=== PATIENT | female | born 1970 | race Caucasian/White ===

== ENCOUNTER 2018-02-06 16:38 | Emergency (ER) | payer MEDICAID, OTHER ==
[2018-02-06 17:03] LABS: #Basophils 0.1 thou/uL (0.0-0.2); #Eosinphils 0.4 thou/uL (0.0-0.7); #Lymphocytes 2.7 thou/uL (1.20-3.40); #Monocytes 0.7 thou/uL (0.11-0.59); #Neutrophils 7.1 thou/uL (1.40-6.50); %Basophils 0.6 % (0.0-1.0); %Eosinophils 3.3 % (0.0-10.0); %Lymphocytes 24.5 % (21.0-51.0); %Monocytes 6.2 % (0.0-10.0); %Neutrophils 65.5 % (42.0-75.0); Hemoglobin 13.1 g/dL (12.0-16.0); Mean Corpuscular HGB CONC 32.8 g/dL (32.0-36.0); Mean Corpuscular Hemoglobin 29.8 pg (27.0-31.0); Mean Corpuscular Volume 90.7 fl (81.0-99.0); Platelet Count 400 thou/uL (130-400); RBC Distribution Width 13.7 % (11.5-14.5); White Blood Cell (WBC) Count 10.9 thou/uL (4.8-10.8)
[2018-02-06 17:23] LABS: CKMB 1.1 ng/mL (0-6.6); Troponin I Less than 0.010 ng/mL (< 0.028)
[2018-02-06 17:25] LABS: ALT (SGPT) 14 U/L (8-55); AST (SGOT) 19 U/L (5-34); Albumin 4.3 g/dL (3.5-5.0); Alkaline Phosphatase 31 U/L (40-150); Anion Gap 12 mmol/L (10-20); BUN (Urea Nitrogen) 8 mg/dL (7.0-18.7); Bilirubin, Total 0.2 mg/dL (0.2-1.2); CK (CPK) 127 U/L (29-168); Calc. Creatinine Clearance 0 mL/min (70-130); Calcium 9.6 mg/dL (7.8-10.44); Carbon Dioxide 24 mmol/L (22-29); Chloride 106 mmol/L (98-107); Estimated GFR-MDRD 80; Globulin 2.6 g/dL (2.4-3.5); Glucose 99 mg/dL (70-105); Protein, Total 6.9 g/dL (6.0-8.3); Sodium 138 mmol/L (136-145)
--- NOTE | 2018-02-06 18:58 | RAD ---
RADIOGRAPH CHEST 1 VIEW: 02/06/18 HISTORY: 47-year-old female with chest pain. FINDINGS: There are no air space densities, pulmonary edema, pneumothorax, or cardiomegaly. The lateral costop hrenic angles are sharp. IMPRESSION: No acute cardiopulmonary findings. walt [] POS: [facility]
[2018-02-06] MEDS ORDERED: Ondansetron ODT 4 MG TAB ONE (19:46)
[2018-02-06] MEDS ORDERED: Acetaminophen 500 MG TAB ONE ×2 (19:51→19:55)
[2018-02-06] MEDS ORDERED: Ondansetron HCl/PF 4 MG/2 ML Vial ONE ×2 (19:56→21:50)
[2018-02-06 19:59] LABS: Bilirubin Negative (Negative); Blood, Urine Negative (Negative); Clarity CLEAR (Clear); Glucose, Urine (Dipstick) Negative (Negative); Leukocyte Negative (Negative); Nitrite Negative (Negative); Protein, Urine (Dipstick) Negative (Neg-Trace); Specific Gravity, Urine 1.012 (1.002-1.036); Urobilinogen 0.2 mg/dL (0.2-1.0)
[2018-02-06 20:56] LABS: Troponin I Less than 0.010 ng/mL (< 0.028)
[2018-02-06] MEDS ORDERED: Ketorolac Tromethamine 30 MG/ML VIAL ONE (21:50)
== END 2018-02-06 22:40 | disposition home or self-care (01) ==
LOC: ERS 16:38
DX: R07.89 Other chest pain (principal); M79.1 Myalgia; R11.2 Nausea with vomiting, unspecified; F41.9 Anxiety disorder, unspecified; F31.9 Bipolar disorder, unspecified; F17.210 Nicotine dependence, cigarettes, uncomplicated
CPT/HCPCS: 36415; 71045; 80053; 81003; 82550; 82553; 83880; 84484; 85025; 85379; 93005; 96361; 96374; 96375; 96376; J1885; J2405; Q0162

== ENCOUNTER 2018-06-28 19:06 | Emergency (ER) | payer OTHER, SELFPAY ==
[2018-06-28] MEDS ORDERED: HYDROcodone/Acetaminophen 5/325 mg Tablet ONE (20:07)
--- NOTE | 2018-06-28 20:37 | RAD ---
LEFT KNEE: 06/28/18 Four views. HISTORY: fall with injury and pain. No evidence of fracture. Joint spaces are preserved. Minimal degenerative change. No joint effusion. IMPRESSION: No acute abnormality identified. POS: [facility]
== END 2018-06-28 20:22 | disposition home or self-care (01) ==
LOC: SCSER 19:06
DX: S80.02XA Contusion of left knee, initial encounter (principal); F41.9 Anxiety disorder, unspecified; F17.210 Nicotine dependence, cigarettes, uncomplicated; Z79.899 Other long term (current) drug therapy; W17.89XA Other fall from one level to another, initial encounter

== ENCOUNTER 2018-08-01 08:52 | Outpatient (CLI) | payer OTHER ==
[~2018-08-01 08:52] MED LIST: ISOVUE-370 76%-LOCM 1 ML ONE
== END 2018-08-01 08:53 | disposition home or self-care (01) ==
LOC: BICCT 08:52
PROVIDERS: ATTEND Family Medicine
DX: R91.8 Other nonspecific abnormal finding of lung field (principal)
CPT/HCPCS: 71260

== ENCOUNTER 2018-11-22 18:37 | Emergency (ER) | payer OTHER, SELFPAY ==
--- NOTE | 2018-11-22 19:36 | RAD ---
THREE VIEW LEFT SHOULDER 11/22/18 INDICATION: Fall with left shoulder pain and injury. 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 No fracture or dislocation. IMPRESSION: No acute osseous abnormality of the left shoulder. POS: [facility]
--- NOTE | 2018-11-22 20:00 | CT ---
CERVICAL SPINE CT NONCONTRAST: 11/22/18 CLINICAL INDICATION: Neck injury with pain. FINDINGS: There is mild to moderate multilevel degenerative change throughout the cervical spine. No fracture o r dislocation identified. Craniocervical junction is intact. IMPRESSION: No acute osseous abnormality of the cervical spine. POS: [facility]
[2018-11-22] MEDS ORDERED: HYDROcodone/Acetaminophen 5/325 mg Tablet ONE (21:02)
== END 2018-11-22 21:21 | disposition home or self-care (01) ==
LOC: SCSER 18:37
DX: S43.402A Unspecified sprain of left shoulder joint, initial encounter (principal); S16.1XXA Strain of muscle, fascia and tendon at neck level, initial encounter; F41.9 Anxiety disorder, unspecified; F31.9 Bipolar disorder, unspecified; F17.210 Nicotine dependence, cigarettes, uncomplicated; Z71.6 Tobacco abuse counseling; Z79.899 Other long term (current) drug therapy; W18.09XA Striking against other object with subsequent fall, initial encounter
CPT/HCPCS: 72125; 99406

== ENCOUNTER 2018-12-13 18:02 | Emergency (ER) | payer SELFPAY ==
--- NOTE | 2018-12-13 19:45 | RAD ---
LEFT KNEE FOUR VIEWS: 12/13/18 HISTORY: Fall. Left knee injury. FINDINGS: Mild osteophytosis. Joint spaces are preserved. No acute fracture, dislocation, or fluid distention o f the suprapatellar bursa. IMPRESSION: Mild osteoarthritic changes left knee. POS: [facility]
--- NOTE | 2018-12-13 20:00 | RAD ---
RADIOGRAPH LEFT ELBOW FOUR VIEWS: 12/13/18 HISTORY: 48-year-old female status post acute traumatic injury to the elbow due to fall. FINDINGS: No fracture or dislocation. No distention of the joint capsule. Degenerative bony hypertrophy of the coronoid process of the acromion. IMPRESSION: No fracture. POS: [facility]
== END 2018-12-13 19:06 | disposition home or self-care (01) ==
LOC: ERS 18:02
DX: S50.02XA Contusion of left elbow, initial encounter (principal); S80.02XA Contusion of left knee, initial encounter; F31.9 Bipolar disorder, unspecified; F41.9 Anxiety disorder, unspecified; F17.210 Nicotine dependence, cigarettes, uncomplicated; Z79.899 Other long term (current) drug therapy; W17.89XA Other fall from one level to another, initial encounter

== ENCOUNTER 2019-02-20 15:10 | Emergency (ER) | payer SELFPAY ==
--- NOTE | 2019-02-20 15:48 | RAD ---
RADIOGRAPH CHEST 1 VIEW: 02/20/19 HISTORY: 48-year-old female with dyspnea. FINDINGS: There are no air space densities, pulmonary edema, pneumothorax, or cardiomegaly. The lateral costop hrenic angles are sharp. IMPRESSION: No acute cardiopulmonary findings. jn [] POS: [facility]
[2019-02-20 15:58] LABS: #Eosinphils 0.3 thou/uL (0.0-0.7); #Lymphocytes 2.5 thou/uL (1.20-3.40); #Monocytes 0.7 thou/uL (0.11-0.59); #Neutrophils 8.8 thou/uL (1.40-6.50); %Basophils 0.4 % (0.0-1.0); %Eosinophils 2.4 % (0.0-10.0); %Lymphocytes 20.1 % (21.0-51.0); %Monocytes 5.7 % (0.0-10.0); %Neutrophils 71.4 % (42.0-75.0); Hemoglobin 14.7 g/dL (12.0-16.0); Mean Corpuscular HGB CONC 32.4 g/dL (32.0-36.0); Mean Corpuscular Hemoglobin 31.8 pg (27.0-31.0); Mean Platelet Volume 6.6 fL (7.4-10.4); Platelet Count 427 thou/uL (130-400); RBC Distribution Width 12.6 % (11.5-14.5); Red Blood Cell (RBC) Count 4.62 mill/uL (4.20-5.40); White Blood Cell (WBC) Count 12.3 thou/uL (4.8-10.8)
[2019-02-20 16:23] LABS: ALT (SGPT) 16 U/L (8-55); AST (SGOT) 13 U/L (5-34); Albumin 4.4 g/dL (3.5-5.0); Alkaline Phosphatase 41 U/L (40-150); Anion Gap 13 mmol/L (10-20); BUN (Urea Nitrogen) 7 mg/dL (7.0-18.7); Bilirubin, Total 0.3 mg/dL (0.2-1.2); Calc. Creatinine Clearance 0 mL/min (70-130); Calcium 9.9 mg/dL (7.8-10.44); Carbon Dioxide 26 mmol/L (22-29); Chloride 108 mmol/L (98-107); Estimated GFR-MDRD 78; Globulin 2.8 g/dL (2.4-3.5); Glucose 77 mg/dL (70-105); Protein, Total 7.2 g/dL (6.0-8.3); Sodium 143 mmol/L (136-145)
[2019-02-20] MEDS ORDERED: Ketorolac Tromethamine 30 MG/ML VIAL ONE (16:45)
[2019-02-20 16:46] LABS: Bilirubin Negative (Negative); Blood, Urine Large (Negative); Clarity CLOUDY (Clear); Glucose, Urine (Dipstick) Negative (Negative); Leukocyte Negative (Negative); Nitrite Negative (Negative); Protein, Urine (Dipstick) Trace mg/dL (Neg-Trace); Specific Gravity, Urine 1.027 (1.002-1.036); Urobilinogen 0.2 mg/dL (0.2-1.0)
[2019-02-20 16:50] LABS: Bacteria/HPF None Seen HPF (None Seen); RBC/HPF 21-50 HPF (0-3)
[2019-02-20 16:55] LABS: Pathc Cast-AUWi Flag 3.94 (0-2.49)
[2019-02-20 17:00] LABS: Hyaline Casts/LPF 4-6 HYALINE CAST LPF (0-3 Hyaline); Other Casts/LPF None Seen LPF (0-3 Hyaline)
[2019-02-20] MEDS ORDERED: Morphine 4 MG/ML VIAL ONE ×2 (17:48→20:57)
--- NOTE | 2019-02-20 18:45 | CT ---
FCT of abdomen and pelvis: 02/20/2019 COMPARISON: 04/21/2014 HISTORY: Hematuria and flank pain TECHNIQUE: Axial CT imaging at 5 mm intervals from lung bases through pubic symphysis without contras t. Coronal reformatted imaging obtained. FINDINGS: The lack of contrast media limits assessment of the viscera, bowel, vascular structures, an d for lymphadenopathy. Incompletely imaged nodule noted in right lung base on axial image 1 measuring 8 mm. Nonemergent foll ow-up CT examination of the chest advised. There is no evidence for free intraperitoneal air or fluid. Clips in the right upper quadrant suggest prior cholecystectomy. Gastric suture line noted. Trace stable pericardial fluid present. Liver, spleen, pancreas, adrenal glands, and kidneys demonstrate no acute findings. Punctate nonobstructing stone noted in upper pole of right kidney measuring in the 2 mm range. Limited assessment of the bowel demonstrates no acute findings. The appendix appears grossly unremarkable. Review of the osseous structures demonstrates no acute findings. IMPRESSION: Punctate nonobstructing stone upper pole right kidney. No evidence for obstructive uropat hy noted on either side. Incompletely imaged nodule within the right lung base for which nonemergent follow-up chest CT suggested.
== END 2019-02-20 21:50 | disposition home or self-care (01) ==
LOC: ERS 15:10
DX: B34.9 Viral infection, unspecified (principal); F41.9 Anxiety disorder, unspecified; F31.9 Bipolar disorder, unspecified; F17.210 Nicotine dependence, cigarettes, uncomplicated; Z79.899 Other long term (current) drug therapy
CPT/HCPCS: 36415; 71045; 74176; 80053; 81003; 81015; 84484; 85025; 93005; 96374; 96375; 96376; J1885; J2270

== ENCOUNTER 2019-04-28 16:32 | Emergency (ER) | payer SELFPAY ==
--- NOTE | 2019-04-28 16:52 | RAD ---
XR Chest 1 View Portable History: Chest pain Comparison: Chest radiograph February 20, 2019 Findings: Lungs are clear. No pneumothorax or effusion. Cardiac silhouette and mediastinal contours a re within normal limits. Impression: No acute intrathoracic abnormality.
[2019-04-28 17:04] LABS: #Basophils 0.1 thou/uL (0.0-0.2); #Eosinphils 0.3 thou/uL (0.0-0.7); #Lymphocytes 2.5 thou/uL (1.20-3.40); #Monocytes 0.8 thou/uL (0.11-0.59); #Neutrophils 8.5 thou/uL (1.40-6.50); %Basophils 0.6 % (0.0-1.0); %Eosinophils 2.4 % (0.0-10.0); %Lymphocytes 20.3 % (21.0-51.0); %Monocytes 6.6 % (0.0-10.0); %Neutrophils 70.1 % (42.0-75.0); Hemoglobin 14.1 g/dL (12.0-16.0); Mean Corpuscular HGB CONC 31.9 g/dL (32.0-36.0); Mean Corpuscular Hemoglobin 31.3 pg (27.0-31.0); Mean Corpuscular Volume 98.4 fL (78.0-98.0); Mean Platelet Volume 6.5 fL (7.4-10.4); Platelet Count 394 thou/uL (130-400); RBC Distribution Width 12.2 % (11.5-14.5); Red Blood Cell (RBC) Count 4.51 mill/uL (4.20-5.40); White Blood Cell (WBC) Count 12.1 thou/uL (4.8-10.8)
[2019-04-28 17:30] LABS: ALT (SGPT) 27 U/L (8-55); AST (SGOT) 22 U/L (5-34); Albumin 4.2 g/dL (3.5-5.0); Alkaline Phosphatase 43 U/L (40-150); Anion Gap 11 mmol/L (10-20); BUN (Urea Nitrogen) 8 mg/dL (7.0-18.7); Bilirubin, Total 0.2 mg/dL (0.2-1.2); CK (CPK) 41 U/L (29-168); Calc. Creatinine Clearance 0 mL/min (70-130); Calcium 9.7 mg/dL (7.8-10.44); Carbon Dioxide 28 mmol/L (22-29); Chloride 106 mmol/L (98-107); Estimated GFR-MDRD 76; Globulin 2.5 g/dL (2.4-3.5); Lipase 37 U/L (8-78); Potassium 3.3 mmol/L (3.5-5.1); Protein, Total 6.7 g/dL (6.0-8.3); Sodium 142 mmol/L (136-145)
[2019-04-28 17:33] LABS: Glucose 55 mg/dL (70-105)
[2019-04-28] MEDS ORDERED: Promethazine HCl 25 MG/ML VIAL ONE (18:32)
[2019-04-28] MEDS ORDERED: diphenhydrAMINE 50 MG/ML VIAL ONE (18:32)
--- NOTE | 2019-04-28 18:44 | CT ---
EXAM: CT brain without contrast HISTORY: Severe headache COMPARISON: 03/26/2017 TECHNIQUE: Multiple contiguous axial images were obtained and a CT of the brain without contrast. FINDINGS: The brain is normal in morphology and attenuation without focal lesions or confluent areas of infarction. There is no evidence of hydrocephalus, intracranial hemorrhage, or extra-axial fluid collection. The calvarium and overlying soft tissues are unremarkable. The visualized paranasal sinuses and masto id air cells are well aerated. IMPRESSION: No evidence of acute intracranial abnormality
[2019-04-28] MEDS ORDERED: Ketorolac Tromethamine 30 MG/ML VIAL ONE (19:55)
[2019-04-28] MEDS ORDERED: Acetaminophen 500 MG TAB ONE (19:55)
--- NOTE | 2019-05-03 15:28 | EKG ---
Test Reason : Blood Pressure : / mmHG Vent. Rate : 086 BPM Atrial Rate : 086 BPM P-R Int : 142 ms QRS Dur : 086 ms QT Int : 364 ms P-R-T Axes : 053 030 050 degrees QTc Int : 435 ms Normal sinus rhythm Possible Left atrial enlargement Nonspecific T wave abnormality Abnormal ECG Confirmed by ATUL MCNEILL, RUSSELL ([id number]), pictures editor ERIN MURRELL ([id number]) on 05/03/2019 3:28:25 PM Referred By: Confirmed By:RUSSELL POLLARD MD
== END 2019-04-28 21:49 | disposition home or self-care (01) ==
LOC: ERS 16:32
DX: R51 Headache (principal); F41.9 Anxiety disorder, unspecified; F31.9 Bipolar disorder, unspecified; F17.210 Nicotine dependence, cigarettes, uncomplicated; Z79.899 Other long term (current) drug therapy
CPT/HCPCS: 36415; 70450; 71045; 80053; 82550; 83690; 84484; 85025; 93005; 94760; 96361; 96365; 96375; J1200; J1885; J2550

== ENCOUNTER 2019-06-19 21:48 | Emergency (ER) | payer SELFPAY ==
--- NOTE | 2019-06-19 22:35 | RAD ---
FOUR VIEWS RIGHT ELBOW: 06/19/19 COMPARISON: None. HISTORY: Fall, trauma, pain. FINDINGS: No elbow joint effusion. No displaced fracture or evidence of dislocation seen. IMPRESSION: No acute findings. POS: [facility]
== END 2019-06-19 22:35 | disposition home or self-care (01) ==
LOC: SCSER 21:48
DX: S53.401A Unspecified sprain of right elbow, initial encounter (principal); S30.0XXA Contusion of lower back and pelvis, initial encounter; K21.9 Gastro-esophageal reflux disease without esophagitis; F41.9 Anxiety disorder, unspecified; F31.9 Bipolar disorder, unspecified; F17.210 Nicotine dependence, cigarettes, uncomplicated; Z79.899 Other long term (current) drug therapy; W18.30XA Fall on same level, unspecified, initial encounter

== ENCOUNTER 2021-12-21 14:36 | Outpatient (CLI) | payer OTHER ==
[2021-12-22 07:37] LABS: SARS-CoV-2 PCR by NAA Not Detected (NotDetected)
== END 2021-12-21 14:37 | disposition home or self-care (01) ==
LOC: LABBT 14:36
PROVIDERS: ATTEND Student in an Organized Health Care Education/Training Program
DX: Z01.812 Encounter for preprocedural laboratory examination (principal); Z20.822 Contact with and (suspected) exposure to COVID-19
CPT/HCPCS: U0003; U0005

== ENCOUNTER 2022-10-03 11:09 | Outpatient (CLI) | payer OTHER | END 2022-10-03 11:10 | disposition home or self-care (01) | LOC: BICRAD 11:09 | PROVIDERS: ATTEND Internal Medicine | DX: Z02.71 Encounter for disability determination (principal); M47.816 Spondylosis without myelopathy or radiculopathy, lumbar region | CPT/HCPCS: 72100 ==

== ENCOUNTER 2023-08-03 17:29 | Emergency (ER) | payer BC, MEDICAID ==
[2023-08-03 18:29] LABS: #Eosinphils 0.2 thou/uL (0.0-0.7); #Monocytes 0.5 thou/uL (0.11-0.59); #Neutrophils 5.5 thou/uL (1.40-6.50); %Basophils 0.5 % (0.0-1.0); %Eosinophils 2.8 % (0.0-10.0); %Lymphocytes 24.6 % (21.0-51.0); %Monocytes 6.2 % (0.0-10.0); %Neutrophils 65.8 % (42.0-75.0); Hematocrit 38.8 % (36.0-47.0); Hemoglobin 12.6 g/dL (12.0-16.0); Mean Corpuscular HGB CONC 32.5 g/dL (32.0-36.0); Mean Corpuscular Hemoglobin 30.3 pg (27.0-31.0); Mean Corpuscular Volume 93.3 fl (78.0-98.0); Mean Platelet Volume 9.8 fL (7.4-10.4); Platelet Count 263 10x3/uL (130-400); RBC Distribution Width 15.4 % (11.5-14.5); Red Blood Cell (RBC) Count 4.16 mill/uL (4.20-5.40); White Blood Cell (WBC) Count 8.3 10x3/uL (4.8-10.8)
[2023-08-03 18:57] LABS: ALT (SGPT) 14 U/L (8-55); AST (SGOT) 20 U/L (5-34); Albumin 3.9 g/dL (3.5-5.0); Alkaline Phosphatase 40 U/L (40-110); Anion Gap 14 mmol/L (10-20); BUN (Urea Nitrogen) 8 mg/dL (7.0-18.7); Bilirubin, Total Less than 0.2 mg/dL (0.2-1.2); Calc. Creatinine Clearance 0 mL/min (70-130); Calcium 9.3 mg/dL (7.8-10.44); Carbon Dioxide 23 mmol/L (22-29); Chloride 109 mmol/L (98-107); Estimated GFR 106; Globulin 2.6 g/dL (2.4-3.5); Glucose 79 mg/dL (70-105); Potassium 4.6 mmol/L (3.5-5.1); Protein, Total 6.5 g/dL (6.0-8.3); Sodium 141 mmol/L (136-145)
== END 2023-08-03 21:59 | disposition home or self-care (01) ==
LOC: ERS 17:29
DX: M32.9 Systemic lupus erythematosus, unspecified (principal); F07.81 Postconcussional syndrome; K21.9 Gastro-esophageal reflux disease without esophagitis; F17.210 Nicotine dependence, cigarettes, uncomplicated
CPT/HCPCS: 70450; 80053; 85025; 93005; 96360; 96361